=== PATIENT | male | born 1940 | race Caucasian/White ===

== ENCOUNTER 2017-06-03 20:41 | Emergency (ER) | payer MEDICARE, BC ==
[~2017-06-03] VITALS: Ht 185.4 cm; Wt 93.0 kg
--- NOTE | ~2017-06-03 | CT4 ---
[facility] A Service of [facility] RADIOLOGY TEXT RESULTS PATIENT: SERGIO BAZZI LOCATION: SED : 42 UNIT #: [id number] AGE: [address]: Bradley Shannon MD SEX: M ORDER DR: [id number] [place] [id number] E MR#: [id number] Acc #: [id number] NAME: SERGIO BAZZI : 1940 SEX: M STUDY DATE/TIME: 06/03/2017 23:34 UNIT: SED ROOM: STUDY DESCRIPTION: CT Abd and Pelv Wo Cont Attending Physician: Bradley Shannon M.D. Ordering Physician: Bradley Shannon M.D. Primary Care Physician: Rm Nielsen M.D. MEDICAL IMAGING REPORT This report is preliminary unless electronic signature is present. EXAM CT abdomen and pelvis, 06/03 23:34 INDICATION Fever and dysuria for two days. Lower abdominal pain. TECHNIQUE Axial images were obtained through the abdomen and pelvis following oral contrast administration. Multiplanar reformats were obtained. This CT exam was performed with one or more of the following radiation dose reduction techniques: automatic exposure control, adjustment of mA and/or kV according to patient size, and iterative reconstruction. COMPARISON 10/30/2010 FINDINGS ABDOMEN: There is emphysema in the lung bases. Gallbladder contains stones but is otherwise unremarkable. No biliary obstruction is seen. No renal or ureteral stones are seen, and there is no hydronephrosis. There has been interval enlargement of a left renal cyst. The unenhanced solid organs are otherwise normal. There is diffuse atherosclerotic disease. 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 This is minimally larger than on the prior study that was 2.6 cm. No free fluid. GI tract is normal. PELVIS: There is atherosclerotic disease. There are no lower ureteral stones. The bladder is normal. There is no free fluid. The appendix is surgically absent. The GI tract is otherwise normal. There is grade 1 spondylolisthesis at L5-S1 secondary to bilateral L5 pars defects. IMPRESSION [facility] A Service of [facility] & [facility] RADIOLOGY TEXT RESULTS PATIENT: SERGIO BAZZI LOCATION: SED : 42 UNIT #: [id number] AGE: [address]: Bradley Shannon MD SEX: M ORDER DR: 1. No acute findings in the abdomen or pelvis. 2. No renal or ureteral stones. No hydronephrosis. Interval enlargement of the left renal cyst. 3. Gallstones. 4. Normal GI tract except for changes of appendectomy. 5. The bladder is normal. 6. Atherosclerotic disease. 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 7. Emphysema. Dictated by... Fernando Garcia Jr., M.D. THIS IS AN ELECTRONICALLY VERIFIED REPORT Fernando Garcia Jr., M.D. at 06/07/2017 5:50 AM PAULA/ulises TD: 06/04/2017 10:29 JOB #: [id number] MEDICAL IMAGING REPORT Page 1 of 1
--- NOTE | ~2017-06-03 | CR63 ---
[facility]. [facility] A Service of [facility] & [facility] RADIOLOGY TEXT RESULTS PATIENT: SERGIO BAZZI LOCATION: SED : 42 UNIT #: [id number] AGE: [address]: Bradley Shannon MD SEX: M ORDER DR: [id number] [place] [address] [id number] E MR#: [id number] Acc #: [id number] NAME: SERGIO BAZZI : 1940 SEX: M STUDY DATE/TIME: 06/03/2017 23:30 UNIT: SED ROOM: STUDY DESCRIPTION: CR Chest 2 View Attending Physician: Bradley Shannon M.D. Ordering Physician: Bradley Shannon M.D. Primary Care Physician: Rm Nielsen M.D. MEDICAL IMAGING REPORT This report is preliminary unless electronic signature is present. EXAM Chest x-ray, 06/03 at 23:30 INDICATION Fever. Cough. Congestion. Symptoms for 2 days. FINDINGS Two views of the chest are compared with 09/25/2009. Cardiac and mediastinal contours are normal. Lungs are emphysematous but clear. No pneumothorax. IMPRESSION Emphysema. No active disease. Dictated by... Fernando Garcia Jr., M.D. THIS IS AN ELECTRONICALLY VERIFIED REPORT Fernando Garcia Jr., M.D. at 06/07/2017 5:50 AM PAULA/ulises TD: 06/04/2017 10:27 JOB #: [id number] MEDICAL IMAGING REPORT Page 1 of 1
[~2017-06-03 20:41] MED LIST: ALPRAZOLAM ER0.5 MG PO; ALPRAZOLAM PO; BAYER CHEWABLE81 MG PO; IMDUR30 MG PO; ISOSORBIDE DINI30 MG PO; KEFLEX500 MG; LEVOTHYROXINE25 MCG PO; LOPID600 MG PO; LORTAB 10-5001 EACH; NAPROXEN; NEXIUM PO; OMEPRAZOLE40 MG PO; PAXIL CR PO; PAXIL CR25 MG PO; PLAVIX PO; PREVACID PO; SIMVASTATIN40 MG PO; SYNTHROID25 MCG PO; TASPRIN325 MG PO; THYROID MED; TIROSINT25 MCG PO; TRIAMCINOLONE AC1 GM EXT; TRICOR145 MG PO
[2017-06-03 21:28] LABS: URINE SOURCE CLEAN CATCH
[2017-06-03 21:30] LABS: URINE APPEARANCE SL CLOUDY; URINE BILIRUBIN NEG (NEG); URINE BLOOD 1+ (NEG); URINE COLOR YELLOW; URINE GLUCOSE NEG (NORM); URINE KETONE TRACE (NEG); URINE LEUKOCYTE ESTERASE 2+ (NEG); URINE NITRATE NEG (NEG); URINE PROTEIN 3+ (NEG); URINE SPECIFIC GRAVITY >=1.030 (1.003-1.035); URINE UROBILINOGEN 0.2 MG/DL (NORM)
[2017-06-03 21:34] LABS: MICRO INDICATED? YES
[2017-06-03 21:36] LABS: CULTURE INDICATED? YES; URINE BACTERIA 1+ (NEG); URINE MUCUS PRESENT; URINE SQUAMOUS EPITHELIAL CELL OCCAS /[HPF]; URINE TRANSITIONAL EPI CELLS FEW /[HPF]; URINE WBC 200-300 /[HPF] (0-5)
[2017-06-03 22:15] LABS: BASOPHIL# 0.1 X10e3 (0-0.3); BASOPHIL% 0.7 % (0-2.5); DIFF IND NO; EOSINOPHIL# 0.3 X10e3 (0-0.7); EOSINOPHIL% 1.6 % (0.0-7.0); HEMATOCRIT 35.9 % (38.0-50.0); HEMOGLOBIN 12.1 gm/dL (13.0-16.0); LYMPHOCYTE% 11.6 % (17.0-45.0); MEAN CELL VOLUME 90.2 FL (83-96); MEAN CORPUSCULAR HEMOGLOBIN 30.3 PG (28-34); MEAN CORPUSCULAR HGB CONC 33.6 g/dL (30-36); MEAN PLATELET VOLUME 7.8 FL (6.5-11.5); MONOCYTE% 5.7 % (3.0-12.0); NEUTROPHIL# 13.7 X10e3 (1.5-7.1); NEUTROPHIL% 80.4 % (40-75); PLATELET COUNT 225 X10e3 (140-420); RED BLOOD COUNT 3.98 X10e (3.90-5.60); WHITE BLOOD COUNT 17.1 X10e3 (4.0-10.5)
[2017-06-03 22:32] LABS: BUN/CREATININE RATIO 14.11; CALCIUM SERUM 9.5 mg/dL (8.4-10.2); CREATININE SERUM 1.7 mg/dL (0.6-1.4); GLOM FILT RATE Estimated 38.6 mL/min (>60); POTASSIUM 4.3 mmol/L (3.5-5.1)
[2017-06-04] MEDS ORDERED: CIPRO PO (00:34)
== END 2017-06-04 00:41 | disposition home or self-care (01) ==
LOC: SED 20:41
PROVIDERS: Emergency Medicine
DX: N41.9 Inflammatory disease of prostate, unspecified (principal); K21.9 Gastro-esophageal reflux disease without esophagitis; E78.5 Hyperlipidemia, unspecified; F41.9 Anxiety disorder, unspecified
CPT/HCPCS: 36415; 71020; 74176; 80048; 81003; 83605; 85025; 87040; 87086; 87088; 87186; 96361; 96365; 99284; J1956

== ENCOUNTER 2017-06-04 15:01 | Emergency (ER) | payer MEDICARE, BC ==
--- NOTE | ~2017-06-04 | CR72 ---
[facility]. [facility] A Service of [facility] & [facility] RADIOLOGY TEXT RESULTS PATIENT: SERGIO BAZZI LOCATION: SED : 42 UNIT #: [id number] AGE: [address]: Yosef Freitas MD SEX: M ORDER DR: [id number] [place] [id number] E MR#: [id number] Acc #: [id number] NAME: SERGIO BAZZI : 1940 SEX: M STUDY DATE/TIME: 06/04/2017 18:36 UNIT: SED ROOM: STUDY DESCRIPTION: CR Chest Single View Portable Attending Physician: Yosef Freitas M.D. Ordering Physician: Yosef Freitas M.D. Primary Care Physician: Rm Nielsen M.D. MEDICAL IMAGING REPORT This report is preliminary unless electronic signature is present. EXAM Portable chest. HISTORY Shortness of air today. FINDINGS Bilateral emphysema and moderate scattered interstitial scarring in both lungs. Exam sensitivity partly limited by motion. No focal airspace infiltrates are identified. Cardiac size and pulmonary vascularity are within normal limits. IMPRESSION 1. No evidence of active disease. 2. Bilateral emphysema and [id number] interstitial scarring in both lungs. Dictated by... Edu Young M.D. THIS IS AN ELECTRONICALLY VERIFIED REPORT Edu Young M.D. at 06/05/2017 12:05 PM DFL/jannette TD: 06/05/2017 10:03 JOB #: [id number] MEDICAL IMAGING REPORT Page 1 of 1
--- NOTE | ~2017-06-04 | EKG ---
PATIENT: SERGIO BAZZI UNIT #: [id number] Ventricular Rate: 115 BPM Atrial Rate: 115 BPM P-R Interval: 130 ms QRS Duration: 74 ms Q-T Interval: 264 ms QTC Calculation(Bezet): 365 ms P Vaughan: 55 degrees Calculated R Vaughan: 61 degrees Calculated T Vaughan: 77 degrees Diagnosis Line: Sinus tachycardia with frequent Premature Diagnosis Line: ventricular complexes Diagnosis Line: Possible Left atrial enlargement Diagnosis Line: Nonspecific ST and T wave abnormality Diagnosis Line: Abnormal ECG Diagnosis Line: No previous ECGs available Diagnosis Line: Confirmed by WILLIAM SIEGEL MD ([id number]) on Diagnosis Line: 06/09/2017 8:21:48 AM INTERPRETING MD: CHRISTAL JACOBO
[~2017-06-04 15:01] MED LIST changes: +CIPRO PO
[2017-06-04 15:49] LABS: URINE SOURCE CLEAN CATCH
[2017-06-04 15:52] LABS: BASOPHIL# 0.1 X10e3 (0-0.3); BASOPHIL% 0.5 % (0-2.5); EOSINOPHIL# 0.2 X10e3 (0-0.7); EOSINOPHIL% 1.2 % (0.0-7.0); HEMATOCRIT 33.5 % (38.0-50.0); HEMOGLOBIN 11.3 gm/dL (13.0-16.0); LYMPHOCYTE# 1.3 X10e3 (1.0-3.5); LYMPHOCYTE% 7.4 % (17.0-45.0); MEAN CELL VOLUME 89.7 FL (83-96); MEAN CORPUSCULAR HEMOGLOBIN 30.2 PG (28-34); MEAN CORPUSCULAR HGB CONC 33.7 g/dL (30-36); MONOCYTE# 0.9 X10e3 (0-1.0); MONOCYTE% 5.4 % (3.0-12.0); NEUTROPHIL# 14.9 X10e3 (1.5-7.1); NEUTROPHIL% 85.5 % (40-75); PLATELET COUNT 215 X10e3 (140-420); RED BLOOD COUNT 3.73 X10e (3.90-5.60); RED CELL DISTRIBUTION WIDTH 14.9 % (11.0-15.5); WHITE BLOOD COUNT 17.4 X10e3 (4.0-10.5)
[2017-06-04 16:14] LABS: DIFF IND NO
[2017-06-04 16:16] LABS: URINE APPEARANCE SL CLOUDY; URINE BILIRUBIN NEG (NEG); URINE BLOOD TRACE-INTACT (NEG); URINE COLOR YELLOW; URINE GLUCOSE NEG (NORM); URINE KETONE NEG (NEG); URINE LEUKOCYTE ESTERASE 1+ (NEG); URINE NITRATE NEG (NEG); URINE PROTEIN 2+ (NEG); URINE SPECIFIC GRAVITY >=1.030 (1.003-1.035); URINE UROBILINOGEN 0.2 MG/DL (NORM)
[2017-06-04 16:17] LABS: MICRO INDICATED? YES
[2017-06-04 16:21] LABS: CULTURE INDICATED? YES; URINE BACTERIA 1+ (NEG); URINE WBC 200-300 /[HPF] (0-5)
[2017-06-04 16:22] LABS: URINE SQUAMOUS EPITHELIAL CELL OCCAS /[HPF]
[2017-06-04 16:25] LABS: BUN/CREATININE RATIO 12.1; CALCIUM SERUM 9.1 mg/dL (8.4-10.2); CREATININE SERUM 1.9 mg/dL (0.6-1.4); GLOM FILT RATE Estimated 33.7 mL/min (>60); POTASSIUM 4.2 mmol/L (3.5-5.1)
== END 2017-06-04 20:33 ==
LOC: SED 15:01
PROVIDERS: Emergency Medicine
DX: N39.0 Urinary tract infection, site not specified (principal); N41.9 Inflammatory disease of prostate, unspecified; J44.9 Chronic obstructive pulmonary disease, unspecified; K21.9 Gastro-esophageal reflux disease without esophagitis; E78.00 Pure hypercholesterolemia, unspecified; Z79.899 Other long term (current) drug therapy
CPT/HCPCS: 36415; 71010; 80048; 81003; 85025; 87086; 87088; 87186; 93005; 96365; 96375; 99284; J0696; J2270; J2405

== ENCOUNTER → 2017-07-06 | Outpatient (CLI) | payer MEDICARE, BC ==
--- NOTE | ~2017-07-06 | US77 ---
[facility]. [facility] A Service of [facility] & [facility] RADIOLOGY TEXT RESULTS PATIENT: SERGIO BAZZI LOCATION: [facility] : 42 UNIT #: [id number] AGE: [address]: CARMELA GUERRA MD SEX: M ORDER DR: [id number] [place] [id number] O MR#: [id number] Acc #: [id number] NAME: SERGIO BAZZI : 1940 SEX: M STUDY DATE/TIME: 07/06/2017 10:49 UNIT: [facility] ROOM: STUDY DESCRIPTION: US Kidney Bilateral Complete Attending Physician: Carmela Guerra M.D. Referring Physician: Carmela Guerra M.D. Ordering Physician: Masood Guerra M.D. Primary Care Physician: Carmela Guerra M.D. MEDICAL IMAGING REPORT This report is preliminary unless electronic signature is present. EXAM Renal ultrasound INDICATIONS Urinary tract infection for the past 4 weeks. TECHNIQUE Bustos-scale and Doppler imaging kidneys and bladder. COMPARISON 06/07/2017. FINDINGS Right kidney measures 9.6 cm. Left kidney measures 10.8 cm. No hydronephrosis. No focal renal lesion. Unremarkable bladder. IMPRESSION Negative renal ultrasound. Dictated by... Bandar Romano M.D. THIS IS AN ELECTRONICALLY VERIFIED REPORT Bandar Romano M.D. at 07/07/2017 8:05 AM EED/pcl TD: 07/06/2017 16:41 JOB #: [id number] MEDICAL IMAGING REPORT Page 1 of 1
== END | disposition home or self-care (01) ==
LOC: SGUS 10:18
DX: N39.0 Urinary tract infection, site not specified (principal)
CPT/HCPCS: 76775